=== PATIENT | female | born 1985 | race Caucasian/White ===

== ENCOUNTER 2021-01-30 00:54 | Emergency (ER) | payer BC ==
[2021-01-30] MEDS ORDERED: Ondansetron PF 4 MG/2 ML Vial ONE (01:33)
[2021-01-30] MEDS ORDERED: Ketorolac Tromethamine 30 MG/ML VIAL ONE (02:41)
[2021-01-30] MEDS ORDERED: Morphine 2 MG/ML VIAL ONE (02:41)
[2021-01-30] MEDS ORDERED: Morphine 4 MG/ML VIAL ONE (02:41)
== END 2021-01-30 03:33 | disposition home or self-care (01) ==
LOC: ERS 00:54
DX: R10.11 Right upper quadrant pain (principal); F17.210 Nicotine dependence, cigarettes, uncomplicated
CPT/HCPCS: 76705; 96374; 96375; J1885; J2270; J2405